=== PATIENT | female | born 1980 | race Caucasian/White ===

== ENCOUNTER → 2017-04-22 | Day surgery (SDC) | payer OTHER ==
[~2017-04-22] VITALS: Ht 170.2 cm; Wt 64.3 kg
[~2017-04-22] MED LIST: ACETAMINOPHEN 1000 MG/100 ML 100 ML IV ONE; ACETAMINOPHEN/HYDROcodone 325 MG/7.5 MG TAB PO PRN; BETAMETHASONE SOD PHOS/ACETATE SUSP 30 MG/5 ML VIAL ONE; BUPIVACAINE/EPINEPHRINE 0.25% PF 30 ML VIAL ONE; CHLORHEXIDINE GLUCONATE 2 % 1 PACK (2 CLOTHS) TOPICAL PRN; CHLORHEXIDINE GLUCONATE 4% SOLN 120 ML BTL TOPICAL SCH; DEXAMETHASONE SOD PHOS 4 MG/ML VIAL IV ONE; DO NOT ADM ANY ANTICOAGULANT DRUGS PRN; GELATIN 12 MM/7 MM FOAM ONE; GENTAMICIN SULFATE 80 MG/2 ML VIAL ONE; GLYCOPYRROLATE 1 MG/5 ML SYRINGE IV PUSH ONE; HYDR-3366 PO; HYDROmorphone HCL PF 2 MG/ML VIAL ONE; IBUP1TAB7 PO; KETOROLAC TROMETHAMINE 30 MG/ML (IVP) VIAL IV PUSH ONE; LACTATED RINGER'S 1000 ML INJ 1,000 ML IV ONE; LACTATED RINGER'S 1000 ML INJ 1,000 ML IV SCH; LACTATED RINGER'S 1000 ML IV PRN; LIDOCAINE HCL 1% PF 5 ML SYRINGE OTHER ONE; METOPROLOL TARTRATE 25 MG TAB PO PRN; MIDAZOLAM HCL 2 MG/2 ML VIAL ONE; MORPHINE SULFATE 2 MG/ML INJ IV PUSH PRN; NALOXONE HCL 0.4 MG/ML AMP ONE; NEOSTIGMINE 5 MG/5 ML SYRINGE IV PUSH ONE; ONDANSETRON HCL 4 MG/2 ML VIAL IV ONE; PHENYLEPH/NS 1000 MCG/10 ML SYR IV ONE; POVIDONE IODINE 5% (ANTISEPSIS KIT) 4 APPLICATIONS EACH NARE PRN; PROPOFOL 200 MG/20 ML AMP IV ONE; ROCURONIUM INJ 50 MG/5 ML SYRINGE IV PUSH ONE; SODIUM CHLORID 0.9% 500 ML IV PRN; ceFAZolin 2 GM PREMIX 50 ML IV SCH
--- NOTE | 2017-04-22 10:22 | PD.OP ---
cc: Luis Felipe Briones. Operative Report Date of Surgery: Apr 22, 2017 Preoperative Diagnosis: Herniated nucleus pulposus L5-S1, right, sequestered. Lumbar spinal stenosis. Right lumbosacral radiculopathy Postoperative Diagnosis: Same Procedure: Lumbar laminectomy right L5, S1, lateral recess decompression, resection herniated nucleus pulposus. Use of dilation port and microscope Anesthesia: Gen. Surgeon: Luis Felipe Briones A R Collections Rep(s): SHARATH Clifford Operation and Findings: EBL: 150 cc INDICATION: Is patient is a 37-year-old female with a sequestered disc herniation to the right L5-S1. She has a very hard right S1 radiculopathy. The patient presents for surgical treatment. NOTE: Clarisse Clifford PA-C was present for the entire surgical procedure as my assistant teacher primary. In my medical opinion her skill and care was necessary for the proper management of this patient. PROCEDURE: The patient was brought to the operating room and anesthetized in the supine position. The patient was rolled to a prone position on a Alexis frame on a Saji table. All pressure points were protected in the back was scrubbed with alcohol followed by Hibiclens followed by ChloraPrep and draped sterilely. A timeout was done and antibiotics were given. AP and lateral radiographic images were used to identify the proper levels and perform skin markings. We started from the right side at the L5-S1 level. A paramedian incision was made and an off-midline fascial incision was made. A dilating system was placed down to the interlaminar space and held provisionally to the side of the table. The microscope was brought into the field. A high-speed bur under the microscope was used to perform a right carlos alberto-laminectomy from that side. A lateral recess decompression was accomplished using straight and angled Kerrison punches. A partial medial facetectomy was accomplished. There was a very large disc herniation centrally into the right extending below the disc space. There are multiple sequestered fragments. This created a very severe lateral recess stenosis compressing and displacing the right S1 nerve root. The crossing and exiting nerve roots were completely decompressed. The wound was irrigated copiously. A small piece of Gelfoam with Celestone was placed into the epidural space. Hemostasis was controlled. The deep fascia was approximated with interrupted 0 Vicryl suture subcutaneous suture with 2-0 Vicryl suture and skin with running intradermal 3-0 Vicryl followed by Dermabond. A field block with local anesthesia was utilized. A sterile dressing was applied. The sponge count and needle counts and instrument counts were all correct. The patient tolerated the procedure well as taken to the recovery room in satisfactory condition. FINDINGS: As a large sequestered herniated disc to the right L5-S1. Final decompression was very satisfactory. No complication was appreciated. Luis Felipe Briones MD Apr 22, 2017 10:22
--- NOTE | 2017-04-22 10:53 | RADRPT ---
EXAM DATE/TIME: 04/22/2017 09:25 [facility] COMPARISON: No previous studies available for comparison. INDICATIONS : L5-S1 right laminectomy. MEDICAL HISTORY : None. SURGICAL HISTORY : None. ENCOUNTER: Initial ACUITY: 1 day PAIN SCORE: Non-responsive. LOCATION: lumbar CONCLUSION: Lateral fluoroscopic view demonstrates temporary probe along the posterior elements at S1. Dudley Castro MD on April 22, 2017 at 10:50 Board Certified Radiologist. This report was verified electronically.
[2017-04-22 11:20] VITALS: BP 113/71; PULSE 59; RESP 16; TEMP 97; O2SAT 96
== END | disposition home or self-care (01) ==
LOC: HSDC 06:04
PROVIDERS: ATTEND Orthopaedic Surgery Orthopaedic Surgery of the Spine
DX: M51.17 Intervertebral disc disorders with radiculopathy, lumbosacral region (principal); M48.061 Spinal stenosis, lumbar region without neurogenic claudication
CPT/HCPCS: 00630; 63030; 72020; 76000; J0131; J0690; J0702; J1100; J1580; J1885; J2250; J2310; J2370; J2405; J2710; J3010; J7120; J1170